=== PATIENT | female | born 1990 | race Caucasian/White ===

== ENCOUNTER 2022-06-10 12:18 | Inpatient (IN) | payer OTHER ==
[~2022-06-10] VITALS: Ht 152.4 cm; Wt 74.8 kg
[2022-06-10 12:33] VITALS: BP 133/89
[2022-06-10] MEDS ORDERED: DIAZEPAM PFS 10 MG/2 ML SYR IM ONE ×2 (13:05→13:55)
[2022-06-10] MEDS ORDERED: NACL 0.9% 1,000 ML IV SCH (14:15)
[2022-06-10] MEDS ORDERED: MORPHINE SULFATE 2 MG/ML SYR IVP PRN (14:15)
[2022-06-10] MEDS ORDERED: LORazepam 2 MG/ML VIAL IVP PRN (14:15)
[2022-06-10] MEDS ORDERED: ONDANSETRON 4 MG/2 ML VIAL IVP PRN (14:15)
[2022-06-10] MEDS ORDERED: ACETAMINOPHEN 325 MG TAB PO PRN (14:15)
--- NOTE | 2022-06-10 14:51 | NUR ---
Lab at bedside
--- NOTE | 2022-06-10 14:51 | NUR ---
Dr. Chamorro, admitting doctor evaluating patient at bedside.
[2022-06-10 15:09] LABS: BASOPHILS # (AUTO) 0.1 K/uL (0.00-0.22); BASOPHILS % (AUTO) 0.6 % (0.0-2.0); EOSINOPHILS % (AUTO) 0.1 % (0.0-4.0); LYMPHOCYTES # (AUTO) 1.5 K/uL (2.5-16.5); LYMPHOCYTES % (AUTO) 15.7 % (20.5-51.1); MEAN CORPUSCULAR HEMOGLOBIN 32 pg (27-31); MEAN CORPUSCULAR HGB CONC 35 g/dL (33-37); MEAN CORPUSCULAR VOLUME 90.8 fL (80-94); MONOCYTES # (AUTO) 0.5 K/uL (0.8-1.0); NEUTROPHILS # (AUTO) 7.6 K/uL (1.8-7.7); NEUTROPHILS % (AUTO) 78.6 % (42.2-75.2); PLATELET COUNT (AUTO) 226 K/uL (140-450); RED BLOOD CELL COUNT(AUTO) 4.74 MIL/uL (4.20-5.40); RED CELL DISTRIBUTION WIDTH 12.8 % (11.6-13.7); WHITE BLOOD COUNT (AUTO) 9.6 K/uL (4.8-10.8)
[2022-06-10 15:26] LABS: ALBUMIN 4.5 g/dL (3.4-5.0); ANION GAP 14.3 (8-16); CARBON DIOXIDE 28.4 mmol/L (21-32); CREATININE 0.9 mg/dL (0.6-1.3); POTASSIUM 4.7 mmol/L (3.5-5.1); TOTAL BILIRUBIN 0.7 mg/dL (0.0-1.0)
[2022-06-10] MEDS ORDERED: SERT100T PO (15:55)
[2022-06-10] MEDS ORDERED: MONT10TA35 PO (15:55)
[2022-06-10] MEDS ORDERED: BACL10TA4 PO (15:55)
[2022-06-10] MEDS ORDERED: [UNRECOGNIZED DRUG - CODE] PO (15:55)
[2022-06-10] MEDS ORDERED: LORA10TA19 PO (15:55)
[2022-06-10] MEDS ORDERED: RISP0.5T3 PO ×2 (15:55)
[2022-06-10] MEDS ORDERED: CLON0.1T16 PO (15:55)
[2022-06-10] MEDS ORDERED: LAM25 PO (15:55)
--- NOTE | 2022-06-10 15:57 | NUR ---
31/F MIGU[employer] FROM [employer], PER EMS STAFF CALLED 911 STATING WHILE PATIENT WAS EATING LUNCH SHE BEGAN COUGHING AND PRODUCING A LOT OF SALIVA STATING "SHE POSSIBLY CHOKED." NO SIGNS OF RESPIRATORY DISTRESS, O2 95% ON ROOM AIR.
--- NOTE | 2022-06-10 16:04 | NUR ---
Patient will be admitted to care of Dr. Chamorro. Admited to Telemetry. Will go to room 110-A. Belongings list completed. Report to LOS Francois.
--- NOTE | 2022-06-10 16:16 | NUR ---
@1610 PATIENT WAS WHEEL INTO THE UNIT ACCOMPANY WITH MOTHER AND ER NURSE UNDER CARE OF DR. APPLE FOR OBSERVATION STATUS. PATIENT IS ADMIT FOR FOOD BOLUS OBSTRUCTION 2/2 FOUND CHOKING IN HER [employer]. PATIENT, WHO HAS HX OF CEREBRAL PALSY, MENTAL RETARDATION, IS NON-VERBAL, FULL CODE, IN ROOM AIR, AMBULATORY, CURRENT NPO FOR EGD, LAB RESULT WITHIN NORMAL LIMITED. WILL CONTINUE TO MONITOR
--- NOTE | 2022-06-10 16:30 | NUR ---
The patient's care was reviewed and supervised by Hiwot Gatica RN.
[2022-06-10] MEDS ORDERED: LORazepam 2 MG/ML VIAL IM/IVP PRN (16:45)
[2022-06-10] MEDS ORDERED: MIDAZOLAM 5 MG/5 ML VIAL ONE (16:53)
[2022-06-10] MEDS ORDERED: fentaNYL citrate 0.05 MG/ML VIAL ONE ×2 (16:53→16:54)
[2022-06-10] MEDS ORDERED: diphenhydrAMINE 50 MG/ML VIAL ONE (16:53)
[2022-06-10] MEDS ORDERED: fentaNYL citrate 0.05 MG/ML VIAL IVP ONE (18:20)
[2022-06-10] MEDS ORDERED: MIDAZOLAM 2 MG/2 ML VIAL IVP ONE (18:20)
--- NOTE | 2022-06-10 18:27 | NUR ---
SHORTLY AFTER PATIENT ARRIVE THE UNIT, OR NURSE HERE TO LANDSCAPE MAINTENANCE INTERNSHIP PATIENT FOR EGD. AROUND 1820, PATIENT RETURN MST, EGD COMPLETE WITH NORMAL EGD. PER OR NURSE, DOCTOR DID FOUND A PIECE OF APPLE AT THROAT AND REMOVED IT. PATIENT HAD 10MG VERSED GIVEN IN OR TO GET PATIENT READY FOR PROCEDURE. PATIENT TOLERATE PROCEDURE, VITAL WITHIN PATIENT'S BASELINE (T-P-R:98.3-112-20, BP:124/84, O2 SATURATION 95% IN ROOM AIR WITH NO PAIN). WILL CONTINUE TO MONITOR.
--- NOTE | 2022-06-10 19:25 | NUR ---
PATIENT REPORT RECEIVED FROM DAY SHIFT RN. PATIENT AWAKE IN BED, PULLING OFF SPO2 PROBE AND BLOOD PRESSURE CUFF WHILE DOING VITALS. MOTHER AT THE BEDSIDE HELPING TO CALM PATIENT IN ORDER TO DO VITALS. VITALS OBTAINED. PATIENT PER MOTHER IS MIND SET OF A 1 YEAR OLD AND STATED PATIENT DOES NOT UNDERSTAND OR COMPREHEND HOSPITAL STAY. PT WITH IV TO LEFT AC, SALINE LOCKED. PT NOW RESTING IN BED, MOTHER RESTING IN OTHER BED IN ROOM.
--- NOTE | 2022-06-10 19:47 | NUR ---
ENDORSEMENT PATIENT TO PM SHIFT NURSE THAT PATIENT REST IN BED; EGD DONE WITH NORMAL RESULT. NPO; PIV AT LAC SALINE LOCK.
[2022-06-10 20:00] VITALS: BP 126/81
--- NOTE | 2022-06-10 23:01 | NUR ---
PT AWAKE IN BED. RESTING COMFORTABLY, NO S/S OF ANY DISTRESS. MOTHER STAYING THE NIGHT WITH PATIENT. NO NEEDS AT THIS TIME. WILL CONTINUE TO MONITOR.
--- NOTE | 2022-06-11 03:00 | NUR ---
PATIENT SLEEPING. NO S/S OF DISTRESS. WILL CONTINUE TO MONITOR.
--- NOTE | 2022-06-11 04:00 | NUR ---
PT UP TO RESTROOM TO VOID. PT WANTING TO LEAVE, NON VERBAL, PT GRUNTING AND HAS HER BAG IN HAND READY TO LEAVE. PTS MOTHER AT BEDSIDE STATES THAT PT IS READY TO LEAVE AND IS THERE ANY WAY DISCHARGE ORDER CAN BE DONE TRACY. INFORMED PTS MOTHER THAT DOCTOR HAS TO DISCHARGE PATIENT WHEN HE SEE'S PT THIS MORNING. PTS MOTHER VERBALIZED UNDERSTANDING. UNABLE TO DO VITALS FOR 4AM PT IS NOT ALLOWING VITALS TO BE TAKEN. WILL CONTINUE TO MONITOR
--- NOTE | 2022-06-11 05:19 | NUR ---
PATIENT IS AGITATED, ADMINISTER 1 MG ATIVAN ORDERED.
--- NOTE | 2022-06-11 05:19 | NUR ---
ABLE TO OBTAIN A BLOOD PRESSURE 165/95. PT ALLOWED RN TO ADMINISTER ATIVAN AND IV REMOVED PT WAS GOING TO PULL OUT. MOTHER AT THE BEDSIDE REQUESTING TO BE DISCHARGED.
--- NOTE | 2022-06-11 07:14 | NUR ---
REPORT GIVEN TO MARZENA BASILIO RN. CARE GIVEN OVER TO CHETNA.
--- NOTE | 2022-06-11 10:48 | NUR ---
PATIENT HAS BEEN SCREENED AND CATEGORIZED MODERATE NUTRITION RISK. PATIENT WILL BE SEEN WITHIN 3-5 DAYS OF ADMISSION. 06/11/22-06/16/[address]
--- NOTE | 2022-06-11 12:50 | NUR ---
patient discharged per ambulatory with father. discharge instructions given and signed by father. all belongings taken by family.
== END 2022-06-11 13:01 | disposition home or self-care (01) | DRG 254 ==
LOC: MED 12:56 → MTU 14:13 → OBSVTOIN 06-11 09:14
PROVIDERS: ADMIT Hospitalist; ATTEND Hospitalist
PROC: 0DC38ZZ Extirpation of Matter from Lower Esophagus, Via Natural or Artificial Opening Endoscopic (ICD-10-PCS; principal; 2022-06-11)
DX: T18.128A Food in esophagus causing other injury, initial encounter (principal); F79 Unspecified intellectual disabilities; X58.XXXA Exposure to other specified factors, initial encounter; Z20.822 Contact with and (suspected) exposure to COVID-19; Y93.89 Activity, other specified; Y92.89 Other specified places as the place of occurrence of the external cause; Y99.8 Other external cause status
CPT/HCPCS: 43235; G0378; 36415; 71045; 80053; 85025; 87081; J1200; J2060; J2250; J3010; J3360; Q0092